=== PATIENT | male | born 1975 | race Caucasian/White ===

== ENCOUNTER 2021-03-05 07:13 | Emergency (ER) | payer OTHER ==
[~2021-03-05] VITALS: Ht 193 cm; Wt 113.4 kg
[~2021-03-05 07:13] MED LIST: ALBU90OI INH; ALBU90OI61 INH; BENZ100A PO; CYCL10 PO; Cyclobenzaprine5 MG PO; HYDACE10 PO; HYDACE5 PO; HYDACE5325 PO; Hydrocodone-Ap1 EA26 PO; IBUP800 PO; LOPE2C PO; LORA10 PO; MELO7.5 PO; Norco 10-325 T1 EACH PO; Norco 5-325 Ta1 EACH PO; OXYACE5T PO; OXYC10ER PO; PENVK500 PO; PROM25 PO; PROM25S PR; Percocet 5-3251 EACH PO; Prednisone20 MG PO; Prilosec20 MG PO; RANI150 PO; ROBITUSSIN COU118 M1 PO; RXOXYACE PO; RXPROM25 PO; VANC125 IV; Veetids 500500 MG PO
[2021-03-05] MEDS ORDERED: TRAZ50 PO (07:24)
[2021-03-05] MEDS ORDERED: ALBU90OI INH (07:24)
[2021-03-05 08:26] LABS: Albumin, Blood 3.3 g/dL (3.4-5.0); Bilirubin, Total 0.3 mg/dL (0.1-1.0); Bun/Creatinine Ratio 14.5 (12.0-20.0); Creatinine, Blood 1.38 mg/dL (0.60-1.20); Globulin, Blood 3.3 g/dL (2.2-4.0); Potassium, Blood 3.3 mmol/L (3.5-5.5); Total Protein, Blood 6.6 g/dL (6.4-8.2)
[2021-03-05 09:17] LABS: Influenza A Negative (NEGATIVE); Influenza B Negative (NEGATIVE)
[2021-03-05] MEDS ORDERED: AZIT250 PO (11:02)
[2021-03-05] MEDS ORDERED: IBUP800 PO (11:02)
[2021-03-05] MEDS ORDERED: GUAI600T33 PO (11:02)
[2021-03-05 11:19] LABS: BASOPHILS ABSOLUTE AUTO 0.05 K/mm3 (0.00-0.23); BASOPHILS PERCENT AUTO 1 % (0-2); EOSINOPHILS ABSOLUTE AUTO 0.02 K/mm3 (0.00-0.68); EOSINOPHILS PERCENT AUTO 0 % (0-6); Hematocrit 38.2 % (37.0-53.0); Hemoglobin 12.3 g/dL (13.5-17.5); IMMATURE GRAN ABSOLUTE AUTO 0.02 K/mm3 (0.00-0.10); IMMATURE GRAN PERCENT AUTO 0 % (0-1); LYMPHOCYTES ABSOLUTE AUTO 1.23 K/mm3 (0.84-5.20); LYMPHOCYTES PERCENT AUTO 26 % (21-46); MONOCYTES ABSOLUTE AUTO 1.04 K/mm3 (0.16-1.47); MONOCYTES PERCENT AUTO 22 % (4-13); Mean Corpuscular HGB 26.4 pg (26.0-34.0); Mean Corpuscular HGB Conc 32.2 g/dL (31.5-36.5); Mean Corpuscular Volume 82 fL (80-100); Mean Platelet Volume 10.4 fL (9.1-12.4); NEUTROPHILS ABSOLUTE AUTO 2.43 K/mm3 (1.96-9.15); NEUTROPHILS PERCENT AUTO 51 % (41-73); Platelet Count 220 K/mm3 (150-400); RDW Coefficient Variation 14.1 % (11.7-14.2); RDW Standard Deviation 41.6 fL (35.1-46.3); Red Blood Cell Count 4.66 M/mm3 (4.30-5.90); White Blood Cell Count 4.79 K/mm3 (4.00-11.30)
== END 2021-03-05 11:10 | disposition home or self-care (01) ==
LOC: ER 07:13
PROVIDERS: Emergency Medicine
DX: J20.9 Acute bronchitis, unspecified (principal); B34.9 Viral infection, unspecified; F17.220 Nicotine dependence, chewing tobacco, uncomplicated
CPT/HCPCS: 71045; 80053; 85025; 87804; 96374; 99284-25; A9270; J1885; J7030